=== PATIENT | male | born 1975 | race African-American/Black ===

== ENCOUNTER 2020-08-08 15:32 | Emergency (ER) | payer SELFPAY ==
[~2020-08-08] VITALS: Ht 188 cm; Wt 88.0 kg
[2020-08-08] MEDS ORDERED: SODIUM CHLORIDE 0.9% 1,000 ML IV ONE (16:15)
[2020-08-08] MEDS ORDERED: LIDOCAINE 1%/EPI 1:100,000 10 ML VIAL IJ ONE (16:15)
[2020-08-08] MEDS ORDERED: BACITRACIN ZINC OINT UDPKT TOP ONE (16:15)
[2020-08-08] MEDS ORDERED: KETOROLAC 30MG/ML VIAL IV ONE (16:15)
[2020-08-08] MEDS ORDERED: TETANUS, DIPHTHERIA, PERTUSSIS VAC/PF 0.5ML (>7YR OLD) IM ONE (16:15)
[2020-08-08 16:29] LABS: BASOPHILS % 0.9 % (0.0-2.0); EOSINOPHILS % 0.8 % (0.0-5.0); HEMATOCRIT. 43.8 % (42.0-52.0); HEMOGLOBIN. 14.7 g/dL (14.0-18.0); LYMPHOCYTES % 44.5 % (20.0-50.0); MEAN CORPUSCULAR HEMOGLOBIN 29.7 pg (28.0-32.0); MEAN CORPUSCULAR VOLUME 88.2 fL (80.0-94.0); MEAN PLATELET VOLUME 8.7 fl (7.4-10.4); MONOCYTES % 8.3 % (2.0-8.0); NEUTROPHILS % 45.5 % (40.0-76.0); PLATELET 239 x1000/uL (130-400); RED BLOOD CELL COUNT 4.97 mill/uL (4.7-6.1); RED CELL DISTRIBUTION WIDTH 17.5 % (11.6-14.6)
[2020-08-08 16:36] LABS: CHLORIDE 104 mEq/L (98-107)
[2020-08-08 16:56] LABS: ETHANOL BLOOD 429 mg/dL
[2020-08-08 17:55] VITALS: BP 126/77
== END 2020-08-08 18:01 | disposition left against medical advice (07) ==
LOC: ER 15:32
DX: S01.511A Laceration without foreign body of lip, initial encounter (principal); S60.511A Abrasion of right hand, initial encounter; F10.129 Alcohol abuse with intoxication, unspecified; Y90.8 Blood alcohol level of 240 mg/100 ml or more; E87.6 Hypokalemia; W01.0XXA Fall on same level from slipping, tripping and stumbling without subsequent striking against object, initial encounter; Y93.89 Activity, other specified; Y92.018 Other place in single-family (private) house as the place of occurrence of the external cause
CPT/HCPCS: 12011; 36415; 70450; 70486; 71045; 72125; 73130; 80053; 80320; 85025; 90471; 90715; 93005; 96361; 96374; 99285; J1885; J3490; J7030; G0480

== ENCOUNTER 2020-08-12 02:40 | Emergency (ER) | payer SELFPAY ==
[~2020-08-12] VITALS: Ht 175.3 cm; Wt 73.0 kg
[2020-08-12 02:58] VITALS: BP 167/108
== END 2020-08-12 03:30 | disposition left against medical advice (07) ==
LOC: ER 02:54
DX: R68.89 Other general symptoms and signs (principal); Z53.21 Procedure and treatment not carried out due to patient leaving prior to being seen by health care provider